=== PATIENT | female | born 1975 | race Caucasian/White ===

== ENCOUNTER → 2016-11-23 | Outpatient (CLI) | payer BC ==
--- NOTE | 2016-11-23 09:43 | DIAGNOSTIC IMAGING REPORT ---
THYROID ULTRASOUND CLINICAL HISTORY: THYROID NODULE,DERRICK DISEASE COMPARISON STUDY: None. TECHNIQUE: Sonography of the thyroid gland was performed. FINDINGS: The right thyroid lobe measures 4.3 x 0.8 x 1.8 cm and the left lobe measures 3.8 x 0.8 x 1.9 cm. Note is made of a 0.8 cm cystic nodule within the midpole of the left lobe that contains an echogenic focus with comet tail artifact. This represents a colloid cyst. The isthmus measures 0.2 cm in thickness. IMPRESSION: 1. Normal size thyroid gland. 2. 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 Electronically signed by: Rei Villela M.D. 11/23/2016 9:41 AM Dictated Date/Time: 11/23/2016 9:40 AM
== END | disposition home or self-care (01) ==
LOC: C.ULTR 09:11
PROVIDERS: ATTEND Nurse Practitioner Family
DX: E04.1 Nontoxic single thyroid nodule (principal); E06.3 Autoimmune thyroiditis

== ENCOUNTER → 2018-02-14 | Outpatient (CLI) | payer OTHER ==
[2018-02-16 14:44] LABS: MICROSOMAL AB <1 IU/ML (<9)
== END | disposition home or self-care (01) ==
LOC: C.LAB 17:46
PROVIDERS: ATTEND Nurse Practitioner
DX: E03.9 Hypothyroidism, unspecified (principal)